=== PATIENT | female | born 1965 | race African-American/Black ===

== ENCOUNTER 2018-08-31 09:54 | Emergency (ER) | payer OTHER ==
[~2018-08-31] VITALS: Ht 167.6 cm; Wt 61.2 kg
--- NOTE | 2018-08-31 10:00 | NUR ---
Note stephanie in EDM - 08/31/18 at 1556 by ROSENDO ED Nurse Note: pt brought by RA from home due to non-compliant for psych meds for awhile. per family member, pt diagnosed paranoid and schizoprenia this yr. but not taking meds. flat affect noted. pt not answering m
--- NOTE | 2018-08-31 10:01 | NUR ---
ED Nurse Note: pt brought by RA from home due to non-compliant for psych meds for awhile. per family member, pt diagnosed paranoid and schizoprenia this yr. but not taking meds. flat affect noted. pt not answering most of the questions. denies any SI/HI. denies hearing voices or seeing things. AAO x3. respirations even and non-labored noted. pt follow the command but needs extra times to follow. pt refused to undress but agree to have green gown on. home meds locked in black box. will wait for the further order.
[2018-08-31 10:17] VITALS: BP 144/96
[2018-08-31] MEDS ORDERED: ABILIFY10 MG ORAL (10:43)
[2018-08-31] MEDS ORDERED: ATENOLOL25 MG ORAL (10:43)
[2018-08-31] MEDS ORDERED: RISPERDAL2 MG ORAL (10:43)
[2018-08-31] MEDS ORDERED: BENZTROPINE ME0.5 MG PO (10:43)
[2018-08-31] MEDS ORDERED: HYDROCHLOROTHIA25 MG ORAL (10:43)
[2018-08-31] MEDS ORDERED: AMLODIPINE BESYL5 MG ORAL (10:43)
[2018-08-31] MEDS ORDERED: ATORVASTATIN CA20 MG ORAL (10:43)
[2018-08-31] MEDS ORDERED: LORATADINE10 M1 PO (10:43)
[2018-08-31] MEDS ORDERED: LORazepam Inj 2mg/ml 1ml IM ONE (11:00)
[2018-08-31] MEDS: DiphenhydrAMINE 50mg/ml Inj IM ONE ×2 (11:00→11:01)
[2018-08-31] MEDS ORDERED: Haloperidol 5mg/ml Inj IM ONE (11:00)
[2018-08-31 11:43] LABS: BASOPHILS % (AUTO) 0.7 % (0.0-2.0); EOSINOPHILS % (AUTO) 0.6 % (0.0-3.0); HEMATOCRIT 45.3 % (37.0-47.0); LYMPHOCYTES % (AUTO) 11.5 % (20.0-45.0); MEAN CORPUSCULAR VOLUME 97 FL (80-99); MONOCYTES % (AUTO) 5.2 % (1.0-10.0); PLATELET COUNT 336 K/UL (150-450); RED BLOOD COUNT 4.68 M/UL (4.20-5.40); RED CELL DISTRIBUTION WIDTH 12.2 % (11.6-14.8); WHITE BLOOD COUNT 10.5 K/UL (4.8-10.8)
[2018-08-31 11:53] LABS: ANION GAP 12 mmol/L (5-15); BLOOD UREA NITROGEN 8 mg/dL (7-18); CALCIUM 9.5 MG/DL (8.5-10.1); CARBON DIOXIDE 24 MMOL/L (21-32); CHLORIDE 109 MMOL/L (98-107); POTASSIUM 3.9 MMOL/L (3.5-5.1); SODIUM 145 MMOL/L (136-145)
[2018-08-31 12:04] LABS: ALANINE AMINOTRANSFERASE 23 U/L (12-78); ALBUMIN 4.4 G/DL (3.4-5.0); ALBUMIN/GLOBULIN RATIO 1.1 (1.0-2.7); ALKALINE PHOSPHATASE 61 U/L (46-116); ASPARTATE AMINO TRANSFERASE 13 U/L (15-37); BILIRUBIN,TOTAL 0.4 MG/DL (0.2-1.0)
--- NOTE | 2018-08-31 13:15 | NUR ---
ED Nurse Note: Leslie EMT at the bed side for sitter per Dr. Jyoti gan.
--- NOTE | 2018-08-31 13:31 | NUR ---
ED Nurse Note: Huy Alexandre [phone] brother mom [phone]
[2018-08-31 14:00] VITALS: BP 133/87
--- NOTE | 2018-08-31 14:01 | Emergency Room Report ---
History of Present Illness General Chief Complaint: Behavioral Complaint Source: Patient, Medical Record, EMS Present Illness HPI Patient has a history of schizophrenia and psychosis. Patient is supposed to be taking Risperdal. Patient is noncompliant with her medications. Patient apparently is very anxious appear to be responding to internal stimuli at times and believes that she is a Saint. Patient has obvious delusions. No other complaints are noted. Symptoms noted to be severe. No other modifying factors. No other associated signs and symptoms. No other complaints were noted. Allergies: Coded Allergies: DIPHENHYDRAMINE (Verified Allergy, Unknown, 08/31/18) Patient History Past Medical History: schizophrenia Past Surgical History: none Family History: none Social History Narrative Denies alcohol or drug use. Last Menstrual Period: unknown Reviewed Nursing Documentation: PMH: Agreed; PSxH: Agreed Nursing Documentation-PMH Past Medical History: No History, Except For Review of Systems All Other Systems: negative except mentioned in HPI Physical Exam Vital Signs Date Time Temp Pulse Resp B/P (MAP) Pulse Ox O2 Delivery O2 Flow Rate FiO2 08/31/18 10:17 98.3 96 18 144/96 94 Room Air Sp02 EP Interpretation: reviewed, normal General Appearance: normal inspection, alert/responsive, no apparent distress, non-toxic Head: normocephalic Eyes: normal eye exam ENT: normal ENT inspection Neck: supple/symm/no masses Respiratory: normal inspection, effort normal, no wheezing Cardiovascular: regular rate, rhythm Gastrointestinal: non-tender, non-distended, normal bowel sounds Genitourinary: no CVA tenderness Musculoskeletal: normal inspection, normal ROM Neurologic: normal inspection Psychiatric: other - Delusional, psychotic, at times responding to internal stimuli. Denies suicidal or homicidal ideation. Skin: normal inspection, no rash Medical Decision Making Diagnostic Impression: Primary Impression: Acute schizophrenia Additional Impression: Medical clearance for psychiatric admission ER Course Patient presents emergency department today with bizarre behavior. Patient is noncompliant with medications. Appears at times to be psychotic. Differential diagnosis include electrolyte abnormality or drug abuse. Given the severity of the patient's presentation I felt this is a highly complex patient. This patient required extensive workup. Patient's exam is consistent with worsening of her underlying psychiatric disease. Operatory work-up was negative patient is medically cleared. Currently awaiting PET team evaluation and placement for psychiatric evaluation. And treatment. Labs Test 08/31/18 11:33 6/28/19 13:05 White Blood Count 10.5 K/UL (4.8-10.8) Red Blood Count 4.68 M/UL (4.20-5.40) Hemoglobin 15.0 G/DL (12.0-16.0) Hematocrit 45.3 % (37.0-47.0) Mean Corpuscular Volume 97 FL (80-99) Mean Corpuscular Hemoglobin 32.1 PG (27.0-31.0) Mean Corpuscular Hemoglobin Concent 33.1 G/DL (32.0-36.0) Red Cell Distribution Width 12.2 % (11.6-14.8) Platelet Count 336 K/UL (150-450) Mean Platelet Volume 8.2 FL (6.5-10.1) Neutrophils (%) (Auto) 82.0 % (45.0-75.0) Lymphocytes (%) (Auto) 11.5 % (20.0-45.0) Monocytes (%) (Auto) 5.2 % (1.0-10.0) Eosinophils (%) (Auto) 0.6 % (0.0-3.0) Basophils (%) (Auto) 0.7 % (0.0-2.0) Sodium Level 145 MMOL/L (136-145) Potassium Level 3.9 MMOL/L (3.5-5.1) Chloride Level 109 MMOL/L (98-107) Carbon Dioxide Level 24 MMOL/L (21-32) Anion Gap 12 mmol/L (5-15) Blood Urea Nitrogen 8 mg/dL (7-18) Creatinine 1.0 MG/DL (0.55-1.30) Estimat Glomerular Filtration Rate > 60 mL/min (>60) Glucose Level 120 MG/DL (74-106) Calcium Level 9.5 MG/DL (8.5-10.1) Total Bilirubin 0.4 MG/DL (0.2-1.0) Aspartate Amino Transf (AST/SGOT) 13 U/L (15-37) Alanine Aminotransferase (ALT/SGPT) 23 U/L (12-78) Alkaline Phosphatase 61 U/L (46-116) Total Protein 8.3 G/DL (6.4-8.2) Albumin 4.4 G/DL (3.4-5.0) Globulin 3.9 g/dL Albumin/Globulin Ratio 1.1 (1.0-2.7) Salicylates Level 1.6 ug/mL (2.8-20) Acetaminophen Level < 2 MCG/ML (10-30) Serum Alcohol < 3 mg/dL Urine Opiates Screen Negative (NEGATIVE) Urine Barbiturates Screen Negative (NEGATIVE) Phencyclidine (PCP) Screen Negative (NEGATIVE) Urine Amphetamines Screen Negative (NEGATIVE) Urine Benzodiazepines Screen Negative (NEGATIVE) Urine Cocaine Screen Negative (NEGATIVE) Urine Marijuana (THC) Screen Negative (NEGATIVE) Last Vital Signs Date Time Temp Pulse Resp B/P (MAP) Pulse Ox O2 Delivery O2 Flow Rate FiO2 08/31/18 10:17 98.3 96 18 144/96 94 Room Air Status: improved Disposition: XFER S[facility]-TRM HOSP Condition: Serious Referrals: NON PHYSICIAN (PCP) Daniel Montes MD Aug 31, 2018 14:01
[2018-08-31 14:06] LABS: APPEARANCE,URINE SLIGHTLY CLOUDY; BILIRUBIN, URINE NEGATIVE (NEGATIVE); GLUCOSE, URINE (UA) NEGATIVE (NEGATIVE); KETONES,URINE 2+ (NEGATIVE); LEUKOCYTE ESTERASE ,URINE 2+ (NEGATIVE); NITRITE,URINE NEGATIVE (NEGATIVE); PH,URINE 5 (4.5-8.0); PROTEIN,URINE 2+ (NEGATIVE); UROBILINOGEN,URINE NORMAL MG/DL (0.0-1.0)
[2018-08-31 14:13] LABS: COLOR,URINE YELLOW
[2018-08-31] MEDS ORDERED: cefTRIAXone 1 GM in NS 55 ML IVPB ONE (14:15)
--- NOTE | 2018-08-31 15:00 | NUR ---
ED Nurse Note: family member visited pt. wants to be update for placement.
--- NOTE | 2018-08-31 15:10 | NUR ---
ED Nurse Note: pt appears to be more cooperative and follow command. IV inserted and antibiotics started.
--- NOTE | 2018-08-31 15:41 | NUR ---
ED Nurse Note: PMRT at the bed side.
[2018-08-31 17:00] VITALS: BP 152/88
--- NOTE | 2018-08-31 18:38 | NUR ---
ED Nurse Note: Reports given to Josephine STEWARD at [facility]. will wait for the transportation.
--- NOTE | 2018-08-31 19:15 | NUR ---
HAND-OFF: Report given to BIN Malik. endosed to notify family member.
[2018-08-31 20:30] VITALS: BP 141/76
--- NOTE | 2018-08-31 20:30 | NUR ---
ER Nurse Note: Report given to BIN Burton in [place] for continuty of care. Pt a&ox3, VSS, no signs of distress. Pt calm, cooperative. Called brother (Baldomero) for an update and was able to communitate with him about pt's status and transfer. Pt ambulatroy with steady gait. Pt left with all belongings and medications returned, given to EMS transporter.
== END 2018-08-31 20:30 | disposition short-term general hospital (02) ==
LOC: EDBD 09:54 → EMR 10:34
DX: F20.9 Schizophrenia, unspecified (principal); Z88.8 Allergy status to other drugs, medicaments and biological substances
CPT/HCPCS: 36415; 80053; 80307; 80329; 81003; 85025; 96365; 96372; 99285; J0696; J1630